=== PATIENT | female | born 1980 | race Caucasian/White ===

== ENCOUNTER 2020-08-14 14:16 | Outpatient (CLI) | payer OTHER | END 2020-08-14 23:59 | disposition home or self-care (01) | LOC: CFH 14:16 | PROVIDERS: ATTEND Obstetrics & Gynecology | DX: N60.02 Solitary cyst of left breast (principal); N63.25 Unspecified lump in the left breast, overlapping quadrants; N63.20 Unspecified lump in the left breast, unspecified quadrant | CPT/HCPCS: 76642; 77061; 77065; G0279 ==